=== PATIENT | female | born 1970 | race Caucasian/White ===

== ENCOUNTER 2024-06-08 10:40 | Emergency (ER) | payer BC, SELFPAY ==
[2024-06-08 11:04] VITALS: BP 130/81; PULSE 103; RESP 16; TEMP 36.8; O2SAT 99
--- NOTE | 2024-06-08 11:23 | ED.NAVMDI ---
HPI - Nausea/Vomiting/Diarrhea General Chief complaint: Nausea/Vomiting/Diarrhea Stated complaint: constant vomiting + migraine Time Seen by Provider: 06/08/24 10:46 Source: patient Mode of arrival: ambulatory Limitations: no limitations History of Present Illness HPI Narrative: Beatrice is a 53-year-old female patient presenting to the clinic today with complaints nausea and vomiting that started this morning. She reports she has vomited 3-4 times. States any time she takes a big drink of water to try to rehydrate she vomits. Did have a migraine headache yesterday but that has subsided. Did not take anything for her migraine headache and states that she normally sleeps and it goes away on its own. States she has not eaten since Thursday. Last bowel movement was this morning small but normal. She denies any URI symptoms, fever, chills, body aches, urinary symptoms, or abdominal pain. Related Data Home Medications Medication Instructions Recorded Confirmed turmeric 400 mg capsule mg PO 06/08/24 Allergies Allergy/AdvReac Type Severity Reaction Status Date / Time latex AdvReac Rash Verified 06/08/24 11:13 Review of Systems Review of Systems: Pertinent positives per HPI. Patient denies any fever, chills, rash, headache, visual changes, dizziness, cough, runny nose, sore throat, shortness of breath, chest pain, palpitations, diarrhea, constipation, abdominal pain, or any urinary issues. PMFSH Comments At the time of my signature, I reviewed and agree with the nursing past medical, surgical, social, and family history. There is no relevant family history pertinent to the patient complaint. Exam Narrative: General: Well-developed, well nourished, in no apparent distress. Head: Normocephalic, atraumatic. Oral mucous membranes dry Cardio: Regular rate and rhythm, s1 and s2 normal, no murmur appreciated. Resp: Clear to auscultation bilaterally, no rhonchi, rales, wheezing or rubs. Abdomen: Soft, pliable, bowel sounds present in all quadrants, non-tender to palpation, no organomegly, no CVAT tenderness. Course Course Emergency Course: Portions of this record may have been created with voice recognition software. Level of Care: Express Care Visit Vital Signs Vital signs: Vital Signs Temperature 36.8 C 06/08/24 11:04 Pulse Rate 103 H 06/08/24 11:04 Respiratory Rate 16 06/08/24 11:04 Blood Pressure 130/81 06/08/24 11:04 Pulse Oximetry 99 06/08/24 11:04 Oxygen Delivery Room Air 06/08/24 11:04 Temperature 36.8 C 06/08/24 11:04 Pulse Rate 103 H 06/08/24 11:04 Respiratory Rate 16 06/08/24 11:04 Blood Pressure 130/81 06/08/24 11:04 Pulse Oximetry 99 06/08/24 11:04 Oxygen Delivery Room Air 06/08/24 11:04 Vital signs reviewed MDM - Nausea/Vomiting/Diarrhea MDM Narrative Medical decision making narrative: At the time of visit patient is resting comfortably on the exam table. Patient appears to be nontoxic. Medications given: Zofran 4 mg ODT Plan: P.o. challenge after Zofran 4 mg ODT was performed. Patient was able to tolerate drinking a full glass of water and eating some [employer] crackers without vomiting. Will send in prescription for Zofran to her pharmacy. Supportive measures were discussed with the patient and they voiced understanding discharge instructions and agrees to treatment plan. Return precautions reviewed Differential Diagnosis Differential diagnosis: Likely food poisoning, gastroenteritis, dehydration and other (Gastritis) Discharge Plan Discharge Clinical Impression: Acute nausea with nonbilious vomiting Patient Disposition: Home, Self-Care Condition: Stable Instructions: Antibiotic Form, Acute Nausea and Vomiting (ED) Additional Instructions: Take prescription medications only as prescribed-Zofran Increase fluids and stay well hydrated Tylenol/motrin for pain/fever BRAT diet for diarrhea Clear liquids x 24 hours then
[2024-06-08] MEDS: ONDANSETRON HCL ODT 4 MG TABLET SUBLINGUAL (11:29)
--- NOTE | 2024-06-08 11:47 | PC.NURSE ---
1145- pt given crackers and water.
--- NOTE | 2024-06-08 12:02 | PC.NURSE ---
Pt finished package of crackers and cup of water stated she was no longer nauseated. Asked for more crackers and water which was provided.
== END 2024-06-08 12:13 | disposition home or self-care (01) ==
PROVIDERS: Emergency Provider Nurse Practitioner Family; PCP Internal Medicine
DX: R11.2 Nausea with vomiting, unspecified (principal)
CPT/HCPCS: 99203; A9270; G0463